=== PATIENT | female | born 1980 | race African-American/Black ===

== ENCOUNTER 2024-07-30 12:53 | Outpatient (CLI) | payer OTHER, SELFPAY ==
--- NOTE | ~2024-07-30 | XR_ITS ---
EXAMINATION: XR lumbar spine min 4V DATE: 07/30/2024 13:42 INDICATION: Low back pain rating down the left leg. Fall. TECHNIQUE: 5 views of lumbar spine were obtained. COMPARISON: None. FINDINGS: Bone alignment is normal. Vertebral body heights are normal. There is mildly decreased disc height at L4-L5. There is multilevel mild facet joint osteoarthritis. IMPRESSION: 1. Mild lumbar spondylosis. Reviewed, dictated and finalized at location A. IMPRESSION: 1. Mild lumbar spondylosis.
== END 2024-07-30 12:54 | disposition home or self-care (01) ==
DX: S30.0XXA Contusion of lower back and pelvis, initial encounter (principal); M43.06 Spondylolysis, lumbar region; X58.XXXA Exposure to other specified factors, initial encounter
CPT/HCPCS: 72110

== ENCOUNTER 2025-06-20 20:29 | Emergency (ER) | payer OTHER, BC, SELFPAY ==
--- OUTSIDE RECORDS SUMMARY | 2019-09-11 03:30 | XMS_ITS | Continuity of Care Document ---
Author Organization [facility] Address [address] [place] [address] Phone Care Team Providers Care General Superintendent Name Role Phone Unavailable Unavailable Unavailable Medications Medication Instructions Dosage Effective Dates (start - stop) Status Comments amoxicillin 500 mg capsule take 1 capsule by oral route every 8 hours for 10 days 500 MG - No Longer Active Procedures Procedure Date Limit Oral Evaluation- problem focused N Periapical Radiographic, first Image Aug Advance Directives Directive Yes / No Effective Date File Name No Information Encounters Encounter Description Practice Location Reason(s) For Visit Diagnoses Date Provider Providers Copied on Encounter [facility] , [address], [place], [place], [id number], [place] tel:[phone] Dental [facility] Encounter for dental exam and cleaning w abnormal findings No Information Family History Family Member Type Diagnosis Age At Onset No Information Payers Payer name Insurance type Covered constitution party ID Authoriza tion(s) No Information Social History Type Description Quantity Date Captured Comments Sex Female Smoking Status No Information Chief Complaint And Reason For Visit No Information Reason For Referral Reason For Referral No Information History Of Present Illness Encounter Date Complaint History Of Prese nt Illness No Information Functional Status Date Functional Assessmen t No Information Instructions Date Instruction Additional Infor mation No Information Assessments Type Assessment Date No Information Patient Care Teams Name Effective Dates (start - stop) Status Members No Information
--- OUTSIDE RECORDS SUMMARY | 2019-09-11 03:30 | XMS_ITS | Continuity of Care Document ---
Author Organization [facility] Address [address] [place] [address] Phone Care Team Providers Care Custom Wood Stair Builder Name Role Phone Unavailable Unavailable Unavailable Medications [...] Diagnoses Date Provider Providers Copied on Encounter [facility] , [address], [place], [place], [id number], [place] tel:[phone] Dental [facility] Encounter for dental exam and cleaning [...]
--- NOTE | ~2025-06-20 | CT_ITS ---
EXAMINATION: CT lumbar spine wo con DATE: 06/20/2025 21:35 INDICATION: Low back pain post fall TECHNIQUE: Computed tomography (CT) of the lumbar spine was performed without intravenous contrast. Automated exposure control and iterative reconstruction technique were employed. The dose-length product was 866.94 mGy-cm. COMPARISON: Lumbar spine radiographs dated 07/30/2024 FINDINGS: Sagittal alignment is normal. Vertebral body heights are normal. No fracture. Mild disc height loss at T12-L1 and L4-L5. Couple low-attenuation cysts in the visualized right hepatic lobe. The larger measuring 1.2 cm. Approximately 1.5 cm low-attenuation cyst at the upper pole the right kidney. Paravertebral soft tissues are unremarkable. 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 There few small sclerotic bone islands in the visualized pelvis, the 3 largest in the left innominate bone unchanged lucency prior study. The following disc levels are specifically discussed: T11-T12 through L2-L3: The disc does not extend beyond the endplate margin. There is mild bilateral facet joint osteoarthritis. There is no neural foraminal stenosis. There is no central canal stenosis. L3-L4: Disc is mildly bulging. There is mild right and moderate left facet joint osteoarthritis. There is mild bilateral neural foraminal stenosis. There is mild central canal stenosis. L4-L5: Disc is bulging. There is mild right and mild to moderate left facet joint osteoarthritis. There is mild to moderate right and moderate left neural foraminal stenosis. There is mild central canal stenosis. L5-S1: Disc is mildly bulging. There is mild left and mild to moderate right facet joint osteoarthritis. There is mild bilateral neural foraminal stenosis. There is no central canal stenosis. IMPRESSION: 1. Mild lumbar and lower thoracic spondylosis. No acute osseous abnormality. Reviewed, dictated and finalized at location A.
[2025-06-20 20:31] VITALS: BP 136/69; PULSE 53; RESP 16; TEMP 36.6; O2SAT 100
--- OUTSIDE RECORDS SUMMARY | 2025-06-20 20:31 | XMS_ITS | Clinical Summary ---
Author Organization [facility] Address [address] [place] [address] Care Team Providers Care Court Interpreter Name Role Phone Unavailable Primary Care Provider Unavailabl e Source Comments [facility],non-owned Affiliates and Associated Physician Practices is amultiple site organization consisting of ambulatory clinics and hospital sitesin [place], [place], [place] and [place]. This disclosure is being madepursuant to the Care Everywhere program and may not contain all information available regarding this patient. Last updated 18.[facility] [employer] Allergies No known active allergies Medications * Be aware that medications may not be up to date on this document. Alwaysverify current medications with the patient. terconazole (TERAZOL 7) 0.4 % vaginal cream Insert 1 Applicator into the vagina at bedtime. 45 g 0 5 Active Social History Tobacco Use Types Packs/Day Years Used Date Smoking Tobacco: Never Alcohol Use Standard Drinks/Week Comments Yes 0 (1 standard drink = 0.6 oz pur e alcohol) occasions Comments No Sex and Gender Information Value Date Recorded Sex Assigned at Not on file Legal Sex Female 5:04 AM BIZTALK ARCHITECT Gender Identity Not on file Sexual Orientation Not on file Last Filed Vital Signs Vital Sign Reading Time Taken Comments Blood Pressure 112/72 12/29/2016 10:49 AM BIZTALK ARCHITECT Pulse 76 12/29/2016 10:49 AM BIZTALK ARCHITECT Temperature 37.1 C (98.8 F) 12/29/2016 10:49 AM BIZTALK ARCHITECT Respiratory Rate 14 12/29/2016 10:49 AM BIZTALK ARCHITECT Oxygen Saturation 98% 12/29/2016 10:49 AM BIZTALK ARCHITECT Inhaled Oxygen Concentration - - Weight 93.4 kg (206 lb) 12/29/2016 10:49 AM BIZTALK ARCHITECT Height 173.5 cm (5' 8.3) 12/29/2016 10:49 AM CS T Body Mass Index 31.05 12/29/2016 10:49 AM BIZTALK ARCHITECT Plan of Treatment Health Maintenance Due Date Last Done Comments COLOGUARD (AGES 45-75) - COLON CA SCREENING 1978 COLON MONITORING 1978 COLONOSCOPY - COLON CA SCREENING 1978 CT COLONOGRAPHY - COLON CA SCREENING 1978 Colorectal Cancer Screening 1978 FIT - COLON CA SCREENING 1978 FLEX SIG - COLON CA SCREENING 1978 MAMMOGRAM 1978 DTAP/TDAP/TD VACCINES (1 - Tdap) 1997 HEPATITIS B VACCINE (1 of 3 - 19+ 3-dose series) 1997 LIPID TESTING 09/25/2019 09/25/2014 COVID-19 VACCINE (1 - 2023-2 5 season) 2024 DEPRESSION SCREENING 10/22/2024 PAP SMEAR 06/08/2025 06/08/2022 (Done Outside Per Patient), 09/10/2014, 09/10/2014 INFLUENZA VACCINE (#1) 2025 ZOSTER VACCINE (1 of 2) 2028 HEPATITIS C SCREENING Completed 09/25/2014 HIV SCREENING Completed 09/25/2014 HIB VACCINE Aged Out No longer eligi ble based on patient's age to complete this topic HPV VACCINE Aged Out No longer eligi ble based on patient's age to complete this topic MENINGOCOCCAL (Group B) VACCINE SHARED DECISION-MAKING Aged Out No longer eligible based on patient's age to complete this topic MENINGOCOCCAL GROUPS A/C/Y/W VACCINE Aged Out No longer eligible based on patient's age to complete this topic PNEUMOCOCCAL VACCINE Aged Out No long er eligible based on patient's age to complete this topic Procedures Procedure Name Priority Date/Time Associated Diagnosis Comments HEPATITIS PANEL Routine 09/25/2014 10:10 AM BIZTALK ARCHITECT Routine gynecological examination HIV-1 HIV-2 ANTIBODY Routine 09/25/2014 10:10 AM BIZTALK ARCHITECT Routine gynecological examination LIPID PROFILE W LDL/HDL RATIO Routine 09/25/2014 10:07 AM BIZTALK ARCHITECT Routine gynecological examination PAP IGP CERVICAL CANCER SCREENING Routine 09/10/2014 4:15 PM BIZTALK ARCHITECT Routine gynecological examination Special screening examination for human papillomavirus (HPV) from Last 3 Months or Most Recently Relevant to Health Maintenance Results * (ABNORMAL) HEPATITIS PANEL (09/25/2014 10:10 AM BIZTALK ARCHITECT) Hepatitis A Virus Antibody IgM Negative Negative [facility] ACCOUNT BILL Hepatitis A Virus Antibody Total Positive(A) Negative [facility] ACCOUNT BILL Hepatitis B Virus Surface Antigen Negative Negative [facility] ACCOUNT BILL Hepatitis Be Antigen Negative Negative [facility] ACCOUNT BILL Hepatitis B Core Virus Antibody IgM Negative Negative [facility] ACCOUNT BILL Hepatitis B Core Virus Antibody Total Negative Negative [facility] ACCOUNT BILL Hepatitis Be Antibody Negative Negative [facility] ACCOUNT BILL Hepatitis B Virus Surface Antibody Reactive [facility] ACCOUNT BILL Comment: Non Reactive: Inconsistent with immunity, less than 10 mIU/mL Reactive: Consistent with immunity, greater than 9.9 mIU/mL BLOOD SPECIMEN / Unknown 09/25/2014 10:10 AM BIZTALK ARCHITECT 09/25/2014 12:28 PM BIZTALK ARCHITECT Narrative Resulting Agency Comment [facility] [address] [place] [address] [id number] Randa Jarvis MD LAB - CHEMISTRY ORDERABLES Fin al Result Performing Organization Address [facility] de Phone Number [facility] ACCOUNT BILL [address] [place] [address] * HIV-1 HIV-2 ANTIBODY (09/25/2014 10:10 AM BIZTALK ARCHITECT) HIV-1 Antibody O.D. Ratio <1.00 <1.00 [facility] ACCOUNT BILL Comment:Index Value: Specime n reactivity relative to the negative cutoff. HIV-1/HIV-2 Non Reactive Non Reactive [facility] ACCOUNT BILL Blood specimen (specimen) BLOOD SPECIMEN / Unknown 09/25/2014 10:10 AM BIZTALK ARCHITECT 09/25/2014 12:28 PM BIZTALK ARCHITECT Narrative Resulting Agency Comment [facility] [id number] Randa Jarvis MD LAB - CHEMISTRY ORDERABLES Fin al Result Performing Organization Address [facility]/ZIP Co de Phone Number [facility] ACCOUNT BILL [address] [place] [address] * (ABNORMAL) LIPID PROFILE W LDL/HDL (PO REF LAB) (09/25/2014 10:07 AM BIZTALK ARCHITECT) Cholesterol 209(H) 100 - 199 mg/dL [facility] ACCOUNT BILL Triglycerides 42 0 - 149 mg/dL [facility] ACCOUNT BILL HDL Cholesterol 72 >39 mg/dL [facility] ACCOUNT BILL Comment: According to ATP-III Guidelines, HDL-C >59 mg/dL is considered a negative risk factor for CHD. VLDL Calculated 8 5 - 40 mg/dL [facility] ACCOUNT BILL LDL Calculated 129(H) 0 - 99 mg/dL [facility] ACCOUNT BILL Comment NOT NEEDED [facility] ACCOUNT BILL Comment:Ancillary determined the test is not needed LDL/HDL Ratio 1.8 0.0 - 3.2 ratio units [facility] ACCOUNT BILL Comment: LDL/HDL Ratio Men Women 1/2 Avg.Risk 1.0 1.5 Avg.Risk 3.6 3.2 2X Avg.Risk 6.2 5.0 3X Avg.Risk 8.0 6.1 Blood specimen (specimen) BLOOD SPECIMEN / Unknown 09/25/2014 10:07 AM BIZTALK ARCHITECT 09/25/2014 12:29 PM BIZTALK ARCHITECT Narrative Resulting Agency Comment [facility] [place] [id number] [facility] [id number] Randa Jarvis MD LAB - CHEMISTRY ORDERABLES Fin al Result [facility] ACCOUNT BILL [address] [place] [address] * PAP IGP CERVICAL CANCER SCREENING (PO REF LAB) (09/10/2014 4:15 PM BIZTALK ARCHITECT) Age Gdln ACOG Testing 30-65 [facility] ACCOUNT BILL MICROSCOPIC CYTOLOGIC EXAMINATION OF SMEAR OF SPECIMEN FROM FEMALE GENITAL TRACT PREPARED USING PAPANICOLAOU TECHNIQUE / Unknown 09/10/2014 4:15 PM BIZTALK ARCHITECT 09/11/2014 2:10 AM BIZTALK ARCHITECT Narrative [facility] ACCOUNT BILL - 09/16/2014 4:07 PM BIZTALK ARCHITECT Source.............Cervical;Endocervical No. of containers..01 CYTYC Thin Prep Vial Resulting Agency Comment [facility] [address] [place] [phone] [place] Randa Jarvis MD LAB - PATHOLOGY/CYTOLOGY ORDER DANIEL Final Result [facility] ACCOUNT BILL [address] [place] [address] from Last 3 Months or Most Recently Relevant to Health Maintenance
--- OUTSIDE RECORDS SUMMARY | 2025-06-20 20:31 | XMS_ITS | Encounter Summary ---
Author Organization [facility] Address [address] [place] [address] Care Team Providers Care Picker Feeder Name Role Phone Nina Brunner MD Primary Care Provider [phone] Nina Brunner MD Unavailable [phone] Encounter Details Date Type Department Care Team (Latest Contact Info) Description 06/19/2025 Results Follow-Up [facility] [address] [address] [place] [id number] [place] [id number] T3, free, T4, free, TSH Social History Tobacco Use Types Packs/Day Years Used Date Smoking Tobacco: Never Smokeless Tobacco: Never Alcohol Use Standard Drinks/Week Comments Yes 0 (1 standard drink = 0.6 oz pur e alcohol) SOCIAL DRINKER Humiliation, Afraid, Rape, and Kick questionnair e Answer Date Recorded Within the last year, have y ou been afraid of your partner or ex-partner? No 01/25/2021 Within the last year, have y ou been humiliated or emotionally abused in other ways by your partner or ex-partner? No Within the last year, have y ou been kicked, hit, slapped, or otherwise physically hurt by your partner or ex-partner? No 01/25/2021 Within the last year, have y ou been raped or forced to have any kind of sexual activity by your partner or ex-partner? No 01/25/2021 AUDIT-C Answer Date Recorded Q1: How often do you have a drink containing alc ohol? Monthly or less 01/24/2024 Q2: How many drinks containi ng alcohol do you have on a typical day when you are drinking? 1 or 2 01/24/2024 Q3: How often do you have si x or more drinks on one occasion? Never 01/24/2024 PHQ-2 Answer Date Recorded PHQ-2 Total Score (If total score is 3 or more points, staff should administer the PHQ-9) 0 02/24/2025 Personal Safety Answer Date Recorded Have you ever been in or are you currently in a harmful physical or emotional relationship or is someone making you feel afraid or unsafe? Denies 01/24/2024 Comments No Sex and Gender Information Value Date Recorded Sex Assigned at Not on file Legal Sex Female 10:07 AM VAUDEVILLE ACTOR Gender Identity Female 12/21/2020 12:39 AM VAUDEVILLE ACTOR Sexual Orientation Not on file documented as of this encounter Plan of Treatment Not on file documented as of this encounter Visit Diagnoses Not on filedocumented in this encounter Care Teams Picker Feeder Relationship Specialty Start Date End Date Nina Brunner MD [address] [place] [address] PCP - General 01/19/17 Nina Brunnre MD [address] [place] [address] 01/19/17 documented as of this encounter
--- OUTSIDE RECORDS SUMMARY | 2025-06-20 20:31 | XMS_ITS | Encounter Summary ---
Author Organization [facility] Address [address] [place] [address] Care Team Providers Care Lumber Salvager Name Role Phone Nina Brunner MD Primary Care Provider [phone] Encounter Details Date Type Department Care Team (Late st Contact Info) Description 03/20/2001 Emergency [facility] Jamir Rodriguez Er, Authorized P NO ADDRESS ON FILE Sprain of lumbar region (Primary Dx) Social History Tobacco Use Types Packs/Day Years Used Date Smoking Tobacco: Never Assessed Comments Unknown Sex and Gender Information Value Date Recorded Sex Assigned at Not on file Legal Sex Female 5:06 AM EVP OPERATIONS Gender Identity Not on file Sexual Orientation Not on file documented as of this encounter Plan of Treatment Not on file documented as of this encounter Visit Diagnoses Diagnosis Sprain of lumbar region- Primary documented in this encounter Care Teams Lumber Salvager Relationship Specialty Start Date End Date Nina Brunner MD PCP - General Internal Medicine 04/25/18 documented as of this encounter
--- OUTSIDE RECORDS SUMMARY | 2025-06-20 20:31 | XMS_ITS | Clinical Summary ---
Author Organization [facility] Address [address] [place] [id number] Care Team Providers Care Air Conditioning Supervisor Name Role Phone Nina Brunner MD Primary Care Provider [phone] Nina Brunner MD Unavailable [phone] Allergies No known active allergies Medications atorvastatin (LIPITOR) 40 mg tablet Take 1 tablet (40 mg total) by mouth daily 90 tablet 3 02/27/2025 Active Active Problems Problem Noted Date Diagnosed Date Fall (on) (from) other stairs and steps, initial encounter 02/24/2025 Recurrent major depression 09/17/2023 STD (sexually transmitted disease) 05/15/2023 Urinary urgency 05/15/2023 Assessment & Plan (05/15/2023 4:16 PM CDT): Urinalysis was negative. Discussed cranberry juice for prevention. She also will reach out if she has any further symptoms or if she decides she wants to see pelvic floor PT or have any referrals to bladder specialists. Screening for colon cancer 05/15/2023 Assessment & Plan (05/15/2023 4:15 PM CDT): Order placed today since patient will be 43 years old next month. Well woman exam with routine gynecological exam 05/14/2023 Assessment & Plan (05/14/2023 3:29 PM CDT): The patient was here for her well woman exam. She is doing fine. We discussed healthy lifestyle choices such as exercise, diet, multivitamins, calcium, Vit D and avoidance of tobacco, vaping and drug use. Yearly mammography was recommended. Colonoscopy recommended next year. She plans to follow up again in one year. Pap was done. Vitamin D deficiency 10/26/2022 Assessment & Plan (10/30/2023 10:41 AM VP STRATEGY): Patient currently on replacement therapy Recheck levels today and further plans based on it Assessment & Plan (10/26/2022 5:39 PM VP STRATEGY): Check levels and further plans based on it Reviewed lab results Worsening vitamin-D levels Start patient on replacement therapy with vitamin-D 50,000 units oral weekly Abnormal thyroid function test 01/12/2021 Assessment & Plan (01/12/2021 9:07 AM CDT): Low TSH in past Repeat thyroid labs today and further plans based on it Pt clinically euthyroid Reviewed thyroid labs from today - WNL Low TSH level 04/03/2018 Assessment & Plan (04/02/2025 12:38 PM CDT): Chronic intermittent problem, has resolved previously w/o treatment. Last NM scan in 2019 did not show hot nodules. Check thyroid antibody levels today. Will update labs again today, discussed that if they are normalizing then will continue to monitor as she may not require treatment based on her history. If persistently undetectable TSH and given she is symptomatic per HPI, then could try low dose methimazole to see if it helps her symptoms. She understands. Assessment & Plan (07/03/2018 9:38 PM CDT): Reviewed recent TFT labs 06/04/2018 - WNL Assessment & Plan (04/03/2018 11:24 PM CDT): Reviewed recent TFT 02/2018 - TSH - slightly low - 0.22 , normal range free T 4 -pt. clinically euthyroid DD: sub clinical hypothyroidism Vs thyroiditis - plan to recheck labs in 2 months - include TSH, Free T 4, free T 3, TPO ab , TSI - follow up in 2 months Pure hypercholesterolemia 03/08/2018 Chronic bilateral low back pain without sciatica 03/08/2018 Numbness and tingling in both hands 03/08/2018 Multinodular goiter (nontoxic) 03/08/2018 Assessment & Plan (04/02/2025 12:35 PM CDT): Chronic stable problem. No compressive symptoms. Assessment & Plan (10/30/2023 10:36 AM VP STRATEGY): performed a follow up thyroid ultrasound today in office Multiple FNA biopsies in the past with benign cytology Overall stable thyroid nodules No compressive symptoms Recheck TSH Advised to follow-up in next 3-4 years Assessment & Plan (10/26/2022 1:37 PM VP STRATEGY): performed a follow up thyroid ultrasound today in office Multiple FNA biopsies in the past with benign cytology Overall stable thyroid nodules No compressive symptoms Recheck TSH Follow-up in 1 year Assessment & Plan (01/15/2022 8:12 PM CDT): performed a follow up thyroid ultrasound today in office Noted a new 2.13 cm left inferior solid , hypoechoic thyroid nodule , rest of the nodules stable Plan ot perform left inferior nodule FNA soon in office and further plans based on cytology results - no compressive symptoms - recent TSH WNL 12/13 Assessment & Plan (01/12/2021 9:06 AM CDT): Performed a follow up thyroid ultrasound in office today Stable MNG No compressive symptoms Repeat thyroid labs And further plans based on the test results Assessment & Plan (05/23/2020 10:44 PM CDT): Performed a follow up thyroid ultrasound in office today Stable MNG No compressive symptoms Give low TSH, plan to obtain NM thyroid uptake and scan And further plans based on the test results Assessment & Plan (12/19/2018 11:02 AM VP STRATEGY): Reviewed recent thyroid u/s 03/2018 - right inferior dominant nodule slightly increased in size than previous - refer to pt IR for FNA biopsy - further plans based on cytology report Assessment & Plan (07/03/2018 9:42 PM CDT): Reviewed recent thyroid u/s 03/2018 - right inferior dominant nodule slightly increased in size than previous - refer to pt IR for FNA biopsy - further plans based on cytology report Assessment & Plan (04/03/2018 11:25 PM CDT): Reviewed previous thyroid u/s reports and FNA biopsy results Plan to recheck thyroid u/s to follow up on thyroid nodule sizes - no compressive symptoms Weakness generalized 03/08/2018 Thyroid nodule 06/07/2017 Assessment & Plan (05/15/2023 4:13 PM CDT): Follows thyroid issues with PCP Assessment & Plan (06/07/2017 2:54 PM CDT): Fine-needle aspiration biopsy of the thyroid nodule is consistent with follicular nodule. Plan to repeat ultrasound and TSH level in 1 year (December 2017). Sialoadenitis 06/07/2017 Assessment & Plan (07/09/2017 7:42 AM CDT): Patient demonstrates acute left submandibular gland sialoadenitis with sialolithiasis. Patient is responded to medical management. This is patient's 1st occurrence. Recommend conservative measures at this time. Patient was instructed on the use of sialagogues, increase daily water consumption, gentle massage along the submandibular region. Discussed with the patient the possible need for stone extraction versus submandibular gland removal. Patient will follow back up with our office should she develop any reoccurring symptoms. Assessment & Plan (06/07/2017 2:54 PM CDT): Patient is on day 2 of course of Augmentin with improvement of her symptoms. Left Biran's duct is distended and tender upon palpation, calculus palpated towards distal portion or ostium of duct, clear saliva expressed. I have recommended the patient start medrol dose shawnee, increase p.o. fluid intake, sialagogues, warm compress and gentle massage with hopes that the calculus expresses without further intervention. Follow up in 2 weeks. Encounters Date Type Department Care Team Description 06/19/2025 Results Follow-Up [facility] [address] [phone] Ayleen Duncan MD T3, free, T4, free, TSH 06/18/2025 10:30 AM CDT Lab [address] [phone] Low TSH level 06/18/2025 10:00 AM CDT Office Visit [facility] [address] [address] Ayleen Duncan MD Low TSH level (Primary Dx); Multinodular goiter (nontoxic) 04/07/2025 Results Follow-Up [facility] [address] [phone] Randa Siegel PA TSH receptor antibody, T3, free, T4, free, Additional followed-up results: 2 04/02/2025 11:45 AM CDT Lab [address] [phone] Multinodular goiter (nontoxic); Low TSH level 04/02/2025 11:00 AM CDT Office Visit [facility] [address] [phone] Randa Siegel PA Multinodular goiter (nontoxic) (Primary Dx); Low TSH level 03/26/2025 Telephone [facility] [address] [phone] Ayleen Duncan MD from Last 3 Months Immunizations Immunization Administration Dates Next Due DTP 02/17/1983, 1,12/09/1979,01/05,1978 DTaP, Unspecified 05/22/2015 Hep A, Adult 01/26/2021,01/01/2004 Hep B Vaccine 06/17/2021,01/26/2021 Influenza, Quadrivalent, Spl it, Intramuscular 09/21/2016 Influenza, Unspecified 09/17/2023(Deferr ed: Patient Refused),09/17/2022,08/18/2021, 017 MMR 07/19/1990,11/29/1979 Moderna SARS-CoV-2 Monovalen t Vaccination (12+ YRS) 11/11/2020 OPV 02/17/1983, 1,12/09/1979,01/05,1978 PPD TEST 02/11/2021,02/02/2021 Td, adsorbed 03/11/1993 Tdap 02/02/2021 Varicella 02/11/2021 Surgical History Surgery Date Site/Laterality Comments TUBAL LIGATION LIPOSUCTION 12/21/2015 - 01/20/2016 EYE SURGERY Left STYE REDUCTION MAMMAPLASTY Bilateral 2017 Medical History Medical History Date Comments Sialolithiasis Obesity Hyperlipidemia Back ache Goiter Depression Thyroid nodule 2017 Thyroid bx - marlys ign High cholesterol GERD (gastroesophageal reflux disease) Family History Medical History Relation Name Comments Alcohol abuse Brother Depression Brother Schizophrenia Brother Depression Mother Schizophrenia Mother Graves' disease Sister Breast cancer Neg Hx Colon cancer Neg Hx Ovarian cancer Neg Hx Uterine cancer Neg Hx Relation Name Status Comments Brother Mother Sister Social History Tobacco Use Types Packs/Day Years Used Date Smoking Tobacco: Never Smokeless Tobacco: Never Tobacco Cessation:Counseling Given: Not Answered Alcohol Use Standard Drinks/Week Comments Yes 0 [...] on file Legal Sex Female 10:07 AM VP STRATEGY Gender Identity Female 12/21/2020 12:39 AM VP STRATEGY Sexual Orientation Not on file Obstetrics History Para Term AB IAB SAB Ectopic Multiple Livin g Live Births 6 3 3 3 1 3 3 Date Outcome GA Total Labor Labor//3rd Weight Sex Type Anes PTL [place] A1 A5 Name Clin SAB 1995 Term 40w 0d 3.317 kg (7 lb 5 oz) F Vag-S pont Living 1998 AB 1998 Term 40w 0d 3.345 kg (7 lb 6 oz) F Vag-S pont Living 2000 AB 2002 Term 40w 0d 3.43 kg (7 lb 9 oz) F Vag-S pont Living Last Filed Vital Signs Vital Sign Reading Time Taken Comments Blood Pressure 110/70 06/18/2025 10:12 AM CDT Pulse 54 06/18/2025 10:12 AM CDT Temperature 36 C (96.8 F) 02/24/2025 1:04 PM CDT Respiratory Rate 15 06/18/2025 10:12 AM CDT Oxygen Saturation 98% 02/24/2025 1:04 PM CDT Inhaled Oxygen Concentration - - Weight 83.5 kg (184 lb) 06/18/2025 10:12 AM CDT Height 170.2 cm (5' 7) 06/18/2025 10:12 AM CDT Body Mass Index 28.82 06/18/2025 10:12 AM CDT Plan of Treatment Health Maintenance Due Date Last Done Comments Cervical Cancer Screening 05/15/20242022, 05/15/2023, 12/28/2021, Additional history exists Regular Well Visit/Exam 18-64 05/15/2024 05/15/2023, 12/28/2021, 01/25/2021, Additional history exists Covid-19 Vaccine ( season) 2024 11/11/2020 Breast Cancer Screening-Mammogram 02/20/2025 02/21/2024, 12/09/2021, 04/04/2018 Influenza Vaccine (#1) 2025 , 08/18/2021, 07/22/2017, Additional history exists Depression Screening 02/24/2026 02/24/2025, 02/19/2024, 09/17/2023, Additional history exists DTaP/Tdap/Td Vaccine (8 - Td or Tdap) 02/02/2031 02/02/2021, 05/22/2015, 03/11/1993, Additional history exists Colon Cancer Screening-Colonoscopy 01/23/2034 01/24/2024 Hepatitis B Screening Completed 06/17/2021, 021 Hepatitis C Screening Completed 05/15/2023 Pneumococcal vaccine <65 Aged Out No longer eligible based on patient's age to complete this topic Procedures Procedure Name Priority Date/Time Associated Diagnosis Comments TSH Routine 06/18/2025 10:32 AM CDT Low TSH level T4, FREE Routine 06/18/2025 10:32 AM CDT Low TSH level T3, FREE Routine 06/18/2025 10:32 AM CDT Low TSH level TSH Routine 04/02/2025 11:43 AM CDT Multinodular goiter (nontoxic) Low TSH level T4, FREE Routine 04/02/2025 11:43 AM CDT Multinodular goiter (nontoxic) Low TSH level T3, FREE Routine 04/02/2025 11:43 AM CDT Multinodular goiter (nontoxic) Low TSH level THYROID STIMULATING IMMUNOGLOBULIN Routine 04/02/2025 11:43 AM CDT Multinodular goiter (nontoxic) Low TSH level TSH RECEPTOR ANTIBODY Routine 04/02/2025 11:43 AM CDT Multinodular goiter (nontoxic) Low TSH level SCREENING MAMMOGRAM BILATERAL W SETH Schedule Routine, Read Routine (OP Routine) 02/21/2024 11:00 AM CDT Breast cancer screening by mammogram COLONOSCOPY 01/24/2024 12:29 PM CDT HEPATITIS C ANTIBODY Routine 05/15/2023 3:48 PM CDT STD (sexually transmitted disease) HIGH RISK HPV DNA DETECTION WITH GENOTYPING Routine 05/15/2023 3:48 PM CDT from Last 3 Months or Most Recently Relevant to Health Maintenance Results * T3, free (06/18/2025 10:32 AM CDT) Free T3 2.6 2.0 - 4.4 pg/mL Blood 06/18/2025 10:3 2 AM CDT 06/18/2025 11:57 AM CDT us Ayleen Benavidez MD LAB BLOOD ORDERABLE S Final Result [facility] [address] [address] Department [place] [address] * TSH (06/18/2025 10:32 AM CDT) Thyroid Stimulating Hormone 0.32 0.30 - 4.20 mcIUnit/mL Blood 06/18/2025 10:3 2 AM CDT 06/18/2025 11:57 AM CDT us Ayleen Benavidez MD LAB BLOOD ORDERABLE S Final Result Performing Organization Address [facility] [place] [address] [address] [employer] [place], [place] [phone] * T4, free (06/18/2025 10:32 AM CDT) Free T4 1.09 0.90 - 1.70 ng/dL Blood 06/18/2025 10:3 2 AM CDT 06/18/2025 11:57 AM CDT us Ayleen Benavidez MD LAB BLOOD ORDERABLE S Final Result Performing Organization Address [facility] de Phone Number [facility] [place] [address] [address] [place] [address] * TSH receptor antibody (04/02/2025 11:43 AM CDT) TSH receptor ab <1.10 0.00 - 1.75 IUnits/L [facility] Comment: ADDITIONAL INFORMATION At a decision limit of 1.75 IU/L, this assay has 97% sensitivity and 99% specificity for detection of Graves' disease. In healthy individuals and in patients with thyroid disease without diagnosis of Graves' disease, the upper limit of anti-TSHR values are 1.22 IU/L and 1.58 IU/L, respectively (97.5th percentiles). Test Performed by: [place] [address] Clinical Pharmacy Manager: Akhil Gutierrez Ph.D.; CLIA# [id number] Blood 04/02/2025 11:4 3 AM CDT 04/03/2025 2:12 PM CDT us Randa WALKER LAB BLOOD ORDERABLES Fi nal Result Performing Organization Address [facility] [place] [address] [address] [employer] [place], [place] [phone] [facility] * Thyroid stimulating immunoglobulin (04/02/2025 11:43 AM CDT) Pathologist [facility] TSIG <1.0 <=1.3 [facility] Comment: Test Performed by: [facility] [address] [place] [address] Clinical Pharmacy Manager: Akhil Gutierrez Ph.D.; CLIA# [id number] Blood 04/02/2025 11:4 3 AM CDT 04/02/2025 6:35 PM CDT Randa WALKER LAB BLOOD ORDERABLES Fi nal Result Performing Organization Address City/[facility]/ZIP Co de Phone Number [facility] [place] [address] [address] [facility] [employer] [place] [address] [facility] * T3, free (04/02/2025 11:43 AM CDT) Pathologist [facility] Free T3 2.8 2.0 - 4.4 pg/mL Blood 04/02/2025 11:4 3 AM CDT 04/02/2025 6:35 PM CDT Randa WALKER LAB BLOOD ORDERABLES Fi nal Result Performing Organization Address [facility] Co de Phone Number [facility] [place] [address] [address] [facility] [employer] [place] [address] * TSH (04/02/2025 11:43 AM CDT) Pathologist [facility] Thyroid Stimulating Hormone 0.80 0.30 - 4.20 mcIUnit/mL Blood 04/02/2025 11:4 3 AM CDT 04/02/2025 6:35 PM CDT Randa WALKER LAB BLOOD ORDERABLES Fi nal Result Performing Organization Address City/[facility]/ZIP Co de Phone Number [facility] [address] [address] [facility] [employer] [place] [address] * (ABNORMAL) T4, free (04/02/2025 11:43 AM CDT) Free T4 0.84(L) 0.90 - 1.70 ng/dL Blood 04/02/2025 11:4 3 AM CDT 04/02/2025 6:35 PM CDT Randa WALKER LAB BLOOD ORDERABLES Fi nal Result [facility] [place] [address] [address] Department [place] [address] * Screening Mammogram Bilateral W Seth (02/21/2024 11:00 AM CDT) Anatomical Region Laterality Modality Breast Bilateral Mammography 02/21/2024 12:2 0 PM CDT Impressions 02/21/2024 12:20 PM CDT No evidence of malignancy in either breast. FINAL ASSESSMENT: BI-RADS Category 1: Negative. RECOMMENDATION: Recommend return for annual screening mammogram in 12 months. Electronically signed by: JANIS PASTRANA MD Narrative 02/21/2024 12:20 PM CDT EXAMINATION: BILATERAL SCREENING MAMMOGRAM COMPARISON: 12/09/2021, 04/04/2018 TECHNIQUE: Full-field 2D and digital breast tomosynthesis (DBT) images were obtained. CAD was utilized. BREAST PARENCHYMAL COMPOSITION: There are scattered areas of fibroglandular density. FINDINGS: There is no suspicious mass, calcification, or distortion in either breast. Nina Brunner MD IMG MAMMO PROCEDURES Final R esult * Colonoscopy (01/24/2024 12:29 PM CDT) Anatomical Region Laterality Modality Other Narrative Procedure Note Zahra Rollins MD - 01/24/2024 12:29 PM CDT ENDOSCOPY LAB Patient Name: Marisa Oro Procedure Date: 01/24/2024 12:29 PM Admit Type: Outpatient Room: [facility] 4 Date of : 1980 Instrument Name: [id number] Gender: Female Note Status: Finalized Procedure: Colonoscopy Indications: Screening for colorectal malignant neoplasm, Thisis the patient's first colonoscopy Providers: Zahra Rollins M.D. Referring MD: Lashanda Cerda Medicines: Monitored Anesthesia Care Complications: No immediate complications. Estimated Blood Loss: Estimated blood loss was minimal. Procedure: Pre-Anesthesia Assessment: - Immediately prior to administration ofmedications, the patient was re-assessed for adequacy to receive sedatives. - The risks and benefits of the procedure and the sedation options and risks were discussed with the patient. All questions were answered and informed consent was obtained. The benefits, risks and alternatives of theprocedure and sedation were discussed and informed consentwas obtained. All questions were answered. Please referto the signed informed consent document in the medical record. The scope was passed under direct vision.The Colonoscope was introduced through the anus and advanced to the the cecum, identified byappendiceal orifice and ileocecal valve. The colonoscopy was performed without difficulty. The patient tolerated the procedure well. The bowel preparation used was GoLYTELY via split dose instruction. The quality of the bowel preparation was evaluated using the BBPS ([place] Bowel Preparation Scale) with scores of:Right Colon = 3, Transverse Colon = 3 and Left Colon = 3 (entire mucosa seen well with no residual staining, small fragments of stool or opaque liquid). Thetotal BBPS score equals 9. The ileocecal valve,appendiceal orifice, and rectum were photographed. Findings: The perianal and digital rectal examinations were normal. A few diverticula were found in the sigmoid colon. A 3 mm polyp was found in the distal ascending colon. The polyp was sessile. The polyp was removed with a jumbo cold forceps. Resectionand retrieval were complete. Estimated blood loss was minimal. Two sessile polyps were found in the sigmoid colon. The polyps were 2to 3 mm in size. These polyps were removed with a jumbo cold forceps. Resection and retrieval were complete. Estimated blood loss wasminimal. The exam was otherwise without abnormality on direct and retroflexion views. Impression: - Diverticulosis in the sigmoid colon. - One 3 mm polyp in the distal ascending colon, removed with a jumbo cold forceps. Resected and retrieved. - Two 2 to 3 mm polyps in the sigmoid colon,removed with a jumbo cold forceps. Resected andretrieved. - The examination was otherwise normal on directand retroflexion views. Recommendation: - Patient has a contact number available for emergencies. The signs and symptoms of potential delayed complications were discussed with thepatient. Return to normal activities tomorrow. Written discharge instructions were provided to thepatient. - Resume previous diet. - Continue present medications. - Await pathology results. - Repeat colonoscopy in 5-10 years for surveillance based on pathology results. - Return to referring physician as previously scheduled. Attending Participation: I personally performed the entire procedure. Electronically signed by Zahra Rollins MD Zahra Rollins M.D. 01/24/2024 1:04:40 PM This document was signed electronically. Number of Addenda: 0 Note Initiated On: 01/24/2024 12:29 PM Scope Withdrawal Time: 0 hours 9 minutes 6 seconds Scope In: 12:39:48 PM Scope Out: 1:00:32 PM us Zahra Rollins MD ENDOSCOPY PROCEDURES Anny l Result * High Risk HPV DNA Detection with Genotyping (Molecular component) (05/15/2023 3:48 PM CDT) [facility] HPV HR 16 Not Detected Not Detected [facility] HPV HR 18 Not Detected Not Detected [facility] HPV HR Non 16/18 Not Detected Not Detected [facility] Comment: Interpretive Data Nucleic acid amplification for detection of high-risk Human Papilloma virus (HPV) is performed by the Silvano Sean 4800 HPV test, which specifically detects high-risk HPV-16, 18, 31, 33, 35, 39, 45, 51, 52, 56, 58, 59, 66, and 68 genotypes. This assay has been approved by the [place] Food and Drug Administration for detection of HPV in cervical specimens collected by a physician using an endocervical brush/spatula or cervical broom and placed in the ThinPrep Pap Test PreservCyt collection containers. The performance characteristics of this test have been verified by the [facility]. Correlate with separately reported cytology results, as applicable. Interpretive data last revised 23 Endocervical 05/15/2023 3:48 PM CDT 05/15/2023 9:07 PM CDT Lashanda Cerda NP LAB BODY FLUIDS AND STO OLS ORDERABLES Final Result [facility] [address] Department [place] [employer] [place] [address] * Hepatitis C antibody (05/15/2023 3:48 PM CDT) [facility] Hep C Ab Nonreactive Nonreactive [facility] Comment: Interpretive Data Nonreactive: Antibodies to HCV not detected. Does NOT exclude the possibility of recent exposure to HCV. Equivocal: Equivocal for HCV antibodies. Supplemental molecular testing will be automatically performed to determine infection status in accordance with current CDC screening recommendations. Reactive: Positive for HCV antibodies. This may represent current or past HCV infection. Supplemental molecular testing will be automatically performed to determine current infection status in accordance with current CDC screening recommendations. Interpretive data was last revised on 2020. Blood 05/15/2023 3:48 PM CDT 05/15/2023 7:04 PM CDT us Lashanda Cerda NP LAB MICROBIOLOGY - GENE RAL ORDERABLES Edited Result - Final [facility] [address] Department [place] [address] from Last 3 Months or Most Recently Relevant to Health Maintenance [place] For more information, please contact: [phone] * Full Code (Latest Code Status on File) Date Activated Date Inactivated Comments 01/24/2024 12:28 PM 01/24/2024 5:37 PM Care Teams Air Conditioning Supervisor Relationship Specialty Start Date End Date Nina Brunner MD [address] [place] [id number] PCP - General 01/19/17 Nina Brunner MD [address] [place] [address] 01/19/17
--- NOTE | 2025-06-20 21:12 | PC.NURSE ---
45yo F to ER c/o lower back pain s/p slip and fall on wet floor at work on 06/12. Was not evaluated at that time. Pain worsening and worse with movement. Taking ibuprofen with minimal relief, none today. Denies loss of bowel/bladder. Denies numbness/tingling. Denies hx of back in jury. A&Ox4, speech clear. RR even and unlabored. Skin WDL. Pt on continuous nibp and pulse ox monitor. VS as charted. Awaiting provider eval. Denies further needs at this time, call light in reach.
[2025-06-20] MEDS: KETOROLAC 30 MG/ML VIAL (*BKC) IM (21:19)
--- OUTSIDE RECORDS SUMMARY | 2025-06-20 21:42 | XMS_ITS | Encounter Summary ---
Author Organization [facility] Address 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
--- OUTSIDE RECORDS SUMMARY | 2025-06-20 21:42 | XMS_ITS | Clinical Summary ---
Author Organization [facility] Address [address] [place] [address] Care Team Providers Care Chief Telephone Operator Name Role Phone Unavailable Primary Care Provider Unavailabl e Source Comments [facility],non-owned Affiliates and Associated Physician Practices is amultiple site organization consisting of ambulatory clinics and hospital sitesin [place], [place], [place] and [place]. This disclosure is being madepursuant to the Care Everywhere program and may not contain all information available regarding this patient. Last updated 18.[facility] Domains Income Allergies No known active allergies Medications * [...] on file Legal Sex Female 5:04 AM CIRCULATION LIBRARIAN Gender Identity Not on file Sexual Orientation Not on file Last Filed Vital Signs Vital Sign Reading Time Taken Comments Blood Pressure 112/72 12/29/2016 10:49 AM CIRCULATION LIBRARIAN Pulse 76 12/29/2016 10:49 AM CIRCULATION LIBRARIAN Temperature 37.1 C (98.8 F) 12/29/2016 10:49 AM CIRCULATION LIBRARIAN Respiratory Rate 14 12/29/2016 10:49 AM CIRCULATION LIBRARIAN Oxygen Saturation 98% 12/29/2016 10:49 AM CIRCULATION LIBRARIAN Inhaled Oxygen Concentration - - Weight 93.4 kg (206 lb) 12/29/2016 10:49 AM CIRCULATION LIBRARIAN Height 173.5 cm (5' 8.3) 12/29/2016 10:49 AM CS T Body Mass Index 31.05 12/29/2016 10:49 AM CIRCULATION LIBRARIAN Plan of Treatment Health Maintenance Due Date [...] Comments HEPATITIS PANEL Routine 09/25/2014 10:10 AM CIRCULATION LIBRARIAN Routine gynecological examination HIV-1 HIV-2 ANTIBODY Routine 09/25/2014 10:10 AM CIRCULATION LIBRARIAN Routine gynecological examination LIPID PROFILE W LDL/HDL RATIO Routine 09/25/2014 10:07 AM CIRCULATION LIBRARIAN Routine gynecological examination PAP IGP CERVICAL CANCER SCREENING Routine 09/10/2014 4:15 PM CIRCULATION LIBRARIAN Routine gynecological examination Special screening examination for human papillomavirus (HPV) from Last 3 Months or Most Recently Relevant to Health Maintenance Results * (ABNORMAL) HEPATITIS PANEL (09/25/2014 10:10 AM CIRCULATION LIBRARIAN) Hepatitis A Virus Antibody IgM Negative Negative [...] BLOOD SPECIMEN / Unknown 09/25/2014 10:10 AM CIRCULATION LIBRARIAN 09/25/2014 12:28 PM CIRCULATION LIBRARIAN Narrative Resulting Agency Comment [facility] [address] [place] [address] [id number] Randa Jarvis MD LAB - CHEMISTRY ORDERABLES Fin al Result Performing Organization Address [facility] de Phone Number [facility] ACCOUNT BILL [address] [place] [address] * HIV-1 HIV-2 ANTIBODY (09/25/2014 10:10 AM CIRCULATION LIBRARIAN) HIV-1 Antibody O.D. Ratio <1.00 <1.00 [facility] ACCOUNT BILL Comment:Index Value: Specime n reactivity relative to the negative cutoff. HIV-1/HIV-2 Non Reactive Non Reactive [facility] ACCOUNT BILL Blood specimen (specimen) BLOOD SPECIMEN / Unknown 09/25/2014 10:10 AM CIRCULATION LIBRARIAN 09/25/2014 12:28 PM CIRCULATION LIBRARIAN Narrative Resulting Agency Comment [facility] [id number] Randa Jarvis MD LAB - CHEMISTRY ORDERABLES Fin al Result Performing Organization Address [facility]/ZIP Co de Phone Number [facility] ACCOUNT BILL [address] [place] [address] * (ABNORMAL) LIPID PROFILE W LDL/HDL (PO REF LAB) (09/25/2014 10:07 AM CIRCULATION LIBRARIAN) Cholesterol 209(H) 100 - 199 mg/dL [facility] [...] BLOOD SPECIMEN / Unknown 09/25/2014 10:07 AM CIRCULATION LIBRARIAN 09/25/2014 12:29 PM CIRCULATION LIBRARIAN Narrative Resulting Agency Comment [facility] [place] [id number] [facility] [id number] Randa Jarvis MD LAB - CHEMISTRY ORDERABLES Fin al Result [facility] ACCOUNT BILL [address] [place] [address] * PAP IGP CERVICAL CANCER SCREENING (PO REF LAB) (09/10/2014 4:15 PM CIRCULATION LIBRARIAN) Age Gdln ACOG Testing 30-65 [facility] ACCOUNT BILL MICROSCOPIC CYTOLOGIC EXAMINATION OF SMEAR OF SPECIMEN FROM FEMALE GENITAL TRACT PREPARED USING PAPANICOLAOU TECHNIQUE / Unknown 09/10/2014 4:15 PM CIRCULATION LIBRARIAN 09/11/2014 2:10 AM CIRCULATION LIBRARIAN Narrative [facility] ACCOUNT BILL - 09/16/2014 4:07 PM CIRCULATION LIBRARIAN Source.............Cervical;Endocervical No. of containers..01 CYTYC Thin Prep Vial Resulting Agency Comment [facility] [address] [place] [id number] us Randa Jarvis MD LAB - PATHOLOGY/CYTOLOGY ORDER DANIEL Final Result [facility] ACCOUNT BILL [address] [place] [address] from Last 3 Months or Most Recently Relevant to Health Maintenance
--- OUTSIDE RECORDS SUMMARY | 2025-06-20 21:42 | XMS_ITS | Encounter Summary ---
Author Organization [facility] Healthcare Address [address] [place] [address] Care Team Providers Care Marketing Automation Specialist Name Role Phone Nina Brunner MD Primary Care Provider [phone] Nina Brunner MD Unavailable [phone] Encounter Details Date Type Department Care Team (Latest Contact Info) Description 06/19/2025 Results Follow-Up [facility] [address] [address] [place] [id number] [place] [id number] T3, free, T4, free, TSH Social [...] on file Legal Sex Female 10:07 AM FISCAL MANAGER Gender Identity Female 12/21/2020 12:39 AM FISCAL MANAGER Sexual Orientation Not on file documented as of this encounter Plan of Treatment Not on file documented as of this encounter Visit Diagnoses Not on filedocumented in this encounter Care Teams Marketing Automation Specialist Relationship Specialty Start Date End Date Nina Brunner MD [address] [place] [address] PCP - General 01/19/17 Nina Brunner MD [address] [place] [address] 01/19/17 documented as of this encounter
--- OUTSIDE RECORDS SUMMARY | 2025-06-20 21:42 | XMS_ITS | Clinical Summary ---
Author Organization [facility] [address] [place] [address] [place] [address], [place] [address] Care Team Providers Care Uat Tester Name Role Phone Nina Brunner MD Primary Care Provider [phone] Allergies No known active allergies Medications atorvastatin (LIPITOR) 10 mg tablet TK 1 T PO QD 12/11/2016 Active ibuprofen (MOTRIN) 800 mg tablet TK 1 T PO TID WF 01/29/2018 Active Active Problems Problem Noted Date Diagnosed Date S/P bilateral breast reduction 06/04/2018 Tubal ligation status 11/08/2017 Vaginal discharge 04/14/2016 Family History Medical History Relation Name Comments Healthy Brother Healthy Sister 1 Healthy Sister 2 Relation Name Status Comments Brother Alive Father Mother Sister 1 Alive Sister 2 Alive Social History Tobacco Use Types Packs/Day Years Used Date Smoking Tobacco: Never Smokeless Tobacco: Never Tobacco Cessation:Counseling Given: Not Answered Alcohol Use Standard Drinks/Week Comments Yes 0 (1 standard drink = 0.6 oz pur e alcohol) socially Comments No Sex and Gender Information Value Date Recorded Sex Assigned at Not on file Legal Sex Female 5:06 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 Gender Identity Not on file Sexual Orientation Not on file Last Filed Vital Signs Vital Sign Reading Time Taken Comments Blood Pressure 109/75 01/08/2024 9:22 AM CDT Pulse 58 01/08/2024 9:22 AM CDT Temperature 36.8 C (98.3 F) 01/08/2024 9:22 AM CDT Respiratory Rate 14 01/08/2024 9:22 AM CDT Oxygen Saturation 98% 01/08/2024 9:22 AM CDT Inhaled Oxygen Concentration - - Weight 90.7 kg (200 lb) 01/08/2024 9:22 AM CDT Height 172.7 cm (5' 8) 01/08/2024 9:22 AM CDT Body Mass Index 30.41 01/08/2024 9:22 AM CDT Plan of Treatment Health Maintenance Due Date Last Done Comments HEPATITIS B VACCINES (1 of 3 - 19+ 3-dose series) 1997 06/17/2021, 01/26/2021 HPV/Cotest (21-29) 1999 HPV/Cotest (30-65) 2008 CERVICAL CANCER SCREENING 07/19/2019 PAP SMEAR 07/19/2019 07/19/2016 BREAST CANCER SCREENING 12/09/2022 12/09/19, 12/09/2021, 04/04/2018, Additional history exists COLORECTAL SCREENING 2023 Colorectal Cancer Screening 2023 FIT-DNA Q 3 years 2023 FIT/FOBT Q 1 year 2023 Flex Sig/CT Colonography Q 5 years 2023 COVID-19 Vaccine (2 - 2023-2 5 season) 2024 11/11/2020 INFLUENZA VACCINE (#1) 2025 09/21/2016 DTAP/TDAP/TD VACCINES (7 - T d or Tdap) 02/02/2031 02/02/2021, 05/22/2015, 02/17/1983, Additional history exists Procedures Procedure Name Priority Date/Time Associated Diagnosis Comments CERV/VAG CYTOPATH, THIN PREP Routine 07/19/2016 from Last 3 Months or Most Recently Relevant to Health Maintenance Results * CERV/VAG CYTOPATH, THIN PREP (07/19/2016) Specimen from genital system (specimen) SWAB OF ENDOCERVIX / Unknown us Lorraine Melendez MD PATHOLOGY/CYTOLOGY ORDERABLES Ed ited Result - Final [facility] from Last 3 Months or Most Recently Relevant to Health Maintenance Insurance [place] [address] [id number] RX INFOCROSSING Medicaid RX [employer] RX Member Subscriber Plan / Payer (Ef fective for All Dates) Name:Marisa Oro Relation to Subscriber:Self Name:Marisa Oro Payer ID:Not on file Group ID:[id number] Type:RX Commercial Address: [place] [address] [address] [id number] Advance Directives For more information, please contact: [phone] * Full Code (Latest Code Status on File) Date Activated Date Inactivated Comments 05/02/2018 4:26 PM 05/03/2018 3:21 PM * Full Code Date Activated Date Inactivated Comments 05/02/2018 10:19 AM 05/02/2018 4:26 PM Care Teams Uat Tester Relationship Specialty Start Date End Date Nina Brunner MD PCP - General Internal Medicine 04/25/18
--- OUTSIDE RECORDS SUMMARY | 2025-06-20 21:42 | XMS_ITS | Clinical Summary ---
Author Organization [facility] Address [address] [place] [address] Care Team Providers Care Career Development Coordinator Name Role Phone Nina Brunner MD Primary Care Provider [phone] Nina Brunner MD Unavailable [phone] Allergies No known active allergies Medications atorvastatin [...] 10/26/2022 Assessment & Plan (10/30/2023 10:41 AM CASH REGISTER MECHANIC): Patient currently on replacement therapy Recheck levels today and further plans based on it Assessment & Plan (10/26/2022 5:39 PM CASH REGISTER MECHANIC): Check levels and further plans based on [...] symptoms. Assessment & Plan (10/30/2023 10:36 AM CASH REGISTER MECHANIC): performed a follow up thyroid ultrasound today in office Multiple FNA biopsies in the past with benign cytology Overall stable thyroid nodules No compressive symptoms Recheck TSH Advised to follow-up in next 3-4 years Assessment & Plan (10/26/2022 1:37 PM CASH REGISTER MECHANIC): performed a follow up thyroid ultrasound today [...] results Assessment & Plan (12/19/2018 11:02 AM CASH REGISTER MECHANIC): Reviewed recent thyroid u/s 03/2018 - right [...] Augmentin with improvement of her symptoms. Left Brian's duct is distended and tender upon palpation, calculus palpated towards distal portion or ostium of duct, clear saliva expressed. I have recommended the patient start medrol dose shawnee, increase p.o. fluid intake, sialagogues, warm compress and gentle massage with hopes that the calculus expresses without further intervention. Follow up in 2 weeks. Encounters Date Type Department Care Team Description 06/19/2025 Results Follow-Up [facility] [address] [address] Ayleen Duncan MD T3, free, T4, free, TSH 06/18/2025 10:30 AM CDT Lab [address] [address] Low TSH level 06/18/2025 10:00 AM CDT Office Visit [facility] [address] [address] Ayleen Duncan MD Low TSH level (Primary Dx); Multinodular goiter (nontoxic) 04/07/2025 Results Follow-Up [facility] [address] [address] Randa Siegel PA TSH receptor antibody, T3, free, T4, free, Additional followed-up results: 2 04/02/2025 11:45 AM CDT Lab [address] [address] Multinodular goiter (nontoxic); Low TSH level 04/02/2025 11:00 AM CDT Office Visit [facility] [address] [address] Randa Siegel PA Multinodular goiter (nontoxic) (Primary Dx); Low TSH level 03/26/2025 Telephone [facility] [address] [address] Ayleen Duncan MD from Last 3 Months [...] on file Legal Sex Female 10:07 AM CASH REGISTER MECHANIC Gender Identity Female 12/21/2020 12:39 AM CASH REGISTER MECHANIC Sexual Orientation Not on file Obstetrics History [...] LAB BLOOD ORDERABLE S Final Result [facility] [address] [place] [address] * TSH (06/18/2025 10:32 AM CDT) Thyroid Stimulating Hormone 0.32 0.30 - 4.20 mcIUnit/mL Blood 06/18/2025 10:3 2 AM CDT 06/18/2025 11:57 AM CDT us Ayleen Benavidez MD LAB BLOOD ORDERABLE S Final Result Performing Organization Address [facility] [place] [address] [address] [employer] [place], [place] [id number] * T4, free (06/18/2025 10:32 AM CDT) Free T4 1.09 0.90 - 1.70 ng/dL Blood 06/18/2025 10:3 2 AM CDT 06/18/2025 11:57 AM CDT us Ayleen Benavidez MD LAB BLOOD ORDERABLE S Final Result Performing Organization Address [facility] de Phone Number [facility] [place] [address] [place] [address] * TSH receptor antibody (04/02/2025 11:43 AM CDT) TSH receptor ab <1.10 0.00 - 1.75 IUnits/L [facility] Lab Comment: ADDITIONAL INFORMATION At a decision limit of 1.75 IU/L, this assay has 97% sensitivity and 99% specificity for detection of Graves' disease. In healthy individuals and in patients with thyroid disease without diagnosis of Graves' disease, the upper limit of anti-TSHR values are 1.22 IU/L and 1.58 IU/L, respectively (97.5th percentiles). Test Performed by: [place] [address] Instructional Material Director: Akhil Gutierrez Ph.D.; CLIA# [id number] Blood 04/02/2025 11:4 3 AM CDT 04/03/2025 2:12 PM CDT us Randa WALKER LAB BLOOD ORDERABLES Fi nal Result Performing Organization Address [facility] [place] [address] [address] [employer] [place], [place] [id number] [facility] * Thyroid stimulating immunoglobulin (04/02/2025 11:43 AM CDT) Pathologist [facility] TSIG <1.0 <=1.3 [facility] Comment: Test Performed by: [facility] [address] [place] [address] Instructional Material Director: Akhil Gutierrez Ph.D.; CLIA# [id number] Blood 04/02/2025 11:4 3 AM CDT 04/02/2025 6:35 PM CDT Randa WALKER LAB BLOOD ORDERABLES Fi nal Result Performing Organization Address City/[facility]/ZIP Co de Phone Number [facility] [place] [address] [address] [facility] [place] [address] [facility] * T3, free (04/02/2025 11:43 AM CDT) Pathologist [facility] Free T3 2.8 2.0 - 4.4 pg/mL Blood 04/02/2025 11:4 3 AM CDT 04/02/2025 6:35 PM CDT Randa WALKER LAB BLOOD ORDERABLES Fi nal Result Performing Organization Address [facility] Co de Phone Number [facility] [place] [address] [address] [facility] [place] [address] * TSH (04/02/2025 11:43 AM CDT) Pathologist [facility] Thyroid Stimulating Hormone 0.80 0.30 - 4.20 mcIUnit/mL Blood 04/02/2025 11:4 3 AM CDT 04/02/2025 6:35 PM CDT Randa WALKER LAB BLOOD ORDERABLES Fi nal Result Performing Organization Address City/[facility]/ZIP Co de Phone Number [facility] [address] [address] [facility] [place] [address] * (ABNORMAL) T4, free (04/02/2025 11:43 AM CDT) Free T4 0.84(L) 0.90 - 1.70 ng/dL Blood 04/02/2025 11:4 3 AM CDT 04/02/2025 6:35 PM CDT Randa WALKER LAB BLOOD ORDERABLES Fi nal Result [facility] [place] [address] [address] [place] [address] * Screening Mammogram Bilateral W Seth (02/21/2024 [...] 01/24/2024 12:29 PM Admit Type: Outpatient Room: [facility] 4 Date of : 1980 Instrument Name: [...] bowel preparation was evaluated using the BBPS ([place] Bowel Preparation Scale) with scores of:Right Colon [...] Genotyping (Molecular component) (05/15/2023 3:48 PM CDT) [facility] HPV HR 16 Not Detected Not Detected [facility] HPV HR 18 Not Detected Not Detected [facility] HPV HR Non 16/18 Not Detected Not Detected [facility] Comment: Interpretive Data Nucleic acid amplification for [...] this test have been verified by the [facility]. Correlate with separately reported cytology results, as applicable. Interpretive data last revised 23 Endocervical 05/15/2023 3:48 PM CDT 05/15/2023 9:07 PM CDT Lashanda Cerda NP LAB BODY FLUIDS AND STO OLS ORDERABLES Final Result [facility] [address] [place] [address] * Hepatitis C antibody (05/15/2023 3:48 PM CDT) [facility] Hep C Ab Nonreactive Nonreactive [facility] Comment: Interpretive Data Nonreactive: Antibodies to HCV [...] RAL ORDERABLES Edited Result - Final [facility] [address] [place] [address] from Last 3 Months or Most Recently Relevant to Health Maintenance Insurance [place] Advance Directives For more information, please contact: [phone] * Full Code (Latest Code Status on File) Date Activated Date Inactivated Comments 01/24/2024 12:28 PM 01/24/2024 5:37 PM Care Teams Career Development Coordinator Relationship Specialty Start Date End Date Nina Brunner MD [address] [place] [address] PCP - General 01/19/17 Nina Brunner MD [address] [place] [address] 01/19/17
--- NOTE | 2025-06-20 22:00 | ED_ITS ---
HPI - General Adult General Chief complaint: Back Pain/Injury Stated complaint: back pain, fall at work Time Seen by Provider: 06/20/25 21:10 History of Present Illness HPI narrative: Patient is a 45-year-old female presents emergency department chief complaint of low back pain. Patient reports she slipped at work and fell backwards patient reports had low back pain since then the patient reports no pain radiating down her legs denies bowel or bladder incontinence denies footdrop Related Data Allergies Allergy/AdvReac Type Severity Reaction Status Date / Time No Known Allergies Allergy Verified 06/20/25 21:04 Review of Systems Review of Systems: A 10 system review of systems was completed on the patient and is negative exce pt for what is stated in the HPI. Nursing and ancillary documentation was reviewed. Exam Narrative: GENERAL: Well-appearing, well-nourished, and in no acute distress. HEAD: Normocephalic, atraumatic. EYES: PERRLA and EOMI. ENT: Nares clear, no rhinorrhea or epistaxis. Mucous membranes moist. NECK: Supple. CHEST: Clear to auscultation. No respiratory distress. HEART: Regular rate and rhythm. No murmur heard. Normal peripheral pulses. ABDOMEN: Soft, nontender, nondistended, normal active bowel sounds. EXTREMITIES: Normal range of motion. No edema. Back: No bony step-off mild tenderness to palpation in the lumbar spine SKIN: Warm, dry, no rash. NEURO: No focal deficits. Alert and oriented x3. No saddle anesthesia no footdrop PSYCH: Normal mood and affect. Course Vital Signs Vital signs: Vital Signs Temperature 36.6 C 06/20/25 20:31 Pulse Rate 53 L 06/20/25 20:31 Respiratory Rate 16 06/20/25 20:31 Blood Pressure 136/69 06/20/25 20:31 Pulse Oximetry 100 06/20/25 20:31 Oxygen Delivery Room Air 06/20/25 20:31 Temperature 36.6 C 06/20/25 20:31 Pulse Rate 53 L 06/20/25 20:31 Respiratory Rate 16 06/20/25 20:31 Blood Pressure 136/69 06/20/25 20:31 Pulse Oximetry 100 06/20/25 20:31 Oxygen Delivery Room Air 06/20/25 20:31 Medical Decision Making [facility] Narrative Medical decision making narrative: Differential diagnosis includes lumbar fracture, degenerative disc disease CT scan of lumbar spine showed no evidence of fracture there was a slight disc bulge at L4 and L5 Patient will be started on steroids muscle relaxers anti-inflammatories and given a Lidoderm patch prescription. The patient should follow-up with primary care and may need an MRI if she continues to have symptoms Vital Signs Vital Signs: Vital Signs Temperature 36.6 C 06/20/25 20:31 Pulse Rate 53 L 06/20/25 20:31 Respiratory Rate 16 06/20/25 20:31 Blood Pressure 136/69 06/20/25 20:31 Pulse Oximetry 100 06/20/25 20:31 Oxygen Delivery Room Air 06/20/25 20:31 Temperature 36.6 C 06/20/25 20:31 Pulse Rate 53 L 06/20/25 20:31 Respiratory Rate 16 06/20/25 20:31 Blood Pressure 136/69 06/20/25 20:31 Pulse Oximetry 100 06/20/25 20:31 Oxygen Delivery Room Air 06/20/25 20:31 Discharge Plan Discharge Clinical Impression: Strain of lumbar region Patient Disposition: Home Condition: Stable Instructions: Antibiotic Form, Acute Low Back Pain (ED), Degenerative Disc Disease (ED) Patient Language: Macedonian Prescriptions: New cyclobenzaprine 10 mg tablet 10 mg PO TID PRN (Reason: muscle spasm) Qty: 21 0RF prednisone 20 mg tablet 40 mg PO DAILY 5 Days Qty: 10 0RF lidocaine [Lidoderm] 5 % adhesive patch,medicated 1 patch topical DAILY Qty: 15 0RF Rx Instructions: leave on most painful area for up to 12 hrs diclofenac potassium 50 mg tablet 50 mg PO TID PRN (Reason: pain) Qty: 30 0RF Follow-up/Referrals: PHYSICIAN NOT ON STAFF,NONSTAFF [Primary Care Provider] Stand Alone Forms: Work/School Release IP Time of Disposition: 22:17
[2025-06-20 22:37] VITALS: BP 145/83; PULSE 48; RESP 18; O2SAT 100
== END 2025-06-20 22:38 | disposition home or self-care (01) ==
PROVIDERS: Emergency Provider Emergency Medicine
DX: S39.012A Strain of muscle, fascia and tendon of lower back, initial encounter (principal); W01.0XXA Fall on same level from slipping, tripping and stumbling without subsequent striking against object, initial encounter
CPT/HCPCS: 72131; 96372; 99284; J1885